=== PATIENT | female | born 1970 | race Caucasian/White ===

== ENCOUNTER 2018-07-09 07:23 | Emergency (ER) | payer OTHER ==
[~2018-07-09] VITALS: Ht 162.6 cm; Wt 68.0 kg
[2018-07-09] MEDS ORDERED: SYNTHROID50 MCG PO (07:38)
== END 2018-07-09 12:36 | disposition home or self-care (01) ==
LOC: ER 07:23
DX: K29.70 Gastritis, unspecified, without bleeding (principal)